=== PATIENT | male | born 2000 | race Caucasian/White ===

== ENCOUNTER 2021-09-28 18:46 | Emergency (ER) | payer BC, SELFPAY ==
[2021-09-28 18:55] VITALS: BP 132/69; PULSE 77; RESP 16; TEMP 36.5; O2SAT 99
--- NOTE | 2021-09-28 19:44 | ED.URI ---
HPI - URI/Sore Throat General Chief Complaint: Upper Respiratory Infection Stated Complaint: Nausea/Vomiting Time Seen by Provider: 09/28/21 19:44 Source: patient, RN notes reviewed and old records reviewed Mode of arrival: ambulatory Limitations: no limitations History of Present Illness HPI Narrative: 21-year-old male who presents to [facility] with complaints of having fevers up to 101.3F, with head pressure, nausea did have emesis x1 and some cough for the past 2 days. Patient reports that he has been taking Ibuprofen for his symptoms. Patient describes his headache as heavy feeling with pressure that he rates as a 8/10.Patient has had Covid vaccinations and also flu shot. MD elicited complaint: fever, cough, rhinorrhea and other (headache) Onset (ago): day(s) (2) Related Data Home Medications Medication Instructions Recorded Confirmed buspirone 10 mg PO TID 09/28/21 09/28/21 sertraline 50 mg PO DAILY 09/28/21 09/28/21 trazodone 50 mg PO HS 09/28/21 09/28/21 Allergies Allergy/AdvReac Type Severity Reaction Status Date / Time No Known Allergies Allergy Verified 09/28/21 19:09 Review of Systems Review of Systems: CONSTITUTIONAL: Positive for fever, chills, or sweats. EYES: Denies visual changes, redness, or discharge. ENT: Positive for rhinorrhea, congestion,no sore throat, or otalgia. CARDIOVASCULAR: Denies chest pain, palpitations, or edema. RESPIRATORY: Positive for cough no dyspnea. GASTROINTESTINAL: Denies abdominal pain,positive for nausea, no vomiting, or diarrhea. GENITOURINARY: Denies dysuria or hematuria. SKIN: Denies rash or itching. MUSCULOSKELETAL: Denies back pain, joint pain, or myalgia. NEUROLOGIC: Positive for headache, no numbness, or weakness. PSYCHIATRIC: Positive for anxiety or depression. All systems reviewed & are unremarkable except as noted in HPI and below PMFSH Past Medical History Medical History Depression Surgical History Surgical History No history of previous surgery Social History Social History (Updated 09/30/21 @ 08:36 by Leighann Roa NP) Smoking status: Current every day smoker Tobacco type: cigarettes and e-cigarettes/vaping Alcohol intake: current Alcohol use details: rare Substance use type: marijuana Living arrangements: with friend(s) Gender identity (if verbalized by the patient): Male Comments At time of signature, agree with nursing past medical, surgical, social and family history. There is no relevant family history pertinent to the presenting complaint Exam Narrative: GENERAL: Well-appearing, well-nourished, and in no acute distress. HEAD: Normocephalic, atraumatic. EYES: PERRLA and EOMI. ENT: Nares red with clear rhinorrhea or epistaxis. Mucous membranes moist.TM's normal with good light reflex, throat red with no lesions or exudates, no tonsil swelling some post nasal drainage NECK: Supple.no lymphadenopathy CHEST: Clear to auscultation. No respiratory distress. cough non-productive with SAO2 99% on room air HEART: Regular rate and rhythm. No murmur heard. Normal peripheral pulses. ABDOMEN: Soft, nontender to palpation, nondistended, normal active bowel sounds.nausea with emesis X1 EXTREMITIES: Normal range of motion. No edema. SKIN: Warm, dry, no rash. NEURO: No focal deficits. Alert and oriented x3. Course Course Level of Care: Express Care Visit Vital Signs Vital signs: Vital Signs Temperature 36.5 C 09/28/21 18:55 Pulse Rate 77 09/28/21 18:55 Respiratory Rate 16 09/28/21 18:55 Blood Pressure 132/69 09/28/21 18:55 Pulse Oximetry 99 09/28/21 18:55 Temperature 36.5 C 09/28/21 18:55 Pulse Rate 77 09/28/21 18:55 Respiratory Rate 16 09/28/21 18:55 Blood Pressure 132/69 09/28/21 18:55 Pulse Oximetry 99 09/28/21 18:55 MDM - URI/Sore Throat Differential Diagnosis Differential
== END 2021-09-28 20:15 | disposition home or self-care (01) ==
PROVIDERS: Emergency Provider Registered Nurse
DX: J06.9 Acute upper respiratory infection, unspecified (principal); R11.2 Nausea with vomiting, unspecified; F17.210 Nicotine dependence, cigarettes, uncomplicated
CPT/HCPCS: 87804; 99213; G0463